=== PATIENT | female | born 1990 | race Caucasian/White ===

== ENCOUNTER 2021-01-12 01:40 | Emergency (ER) | payer MEDICAID ==
--- NOTE | 2021-01-12 01:40 | NUR ---
PT CHARU BLS. TAKEN TO BED 7
--- NOTE | 2021-01-12 01:45 | NUR ---
PT STATED "MY RIDE IS HERE." PATIENT LEFT WITHOUT BEING SEEN BY DR. MANCILLA. NO FURTHER CARE PROVIDED FOR PATIENT.
== END 2021-01-12 01:45 | disposition left against medical advice (07) ==
LOC: MED 01:40
DX: F41.9 Anxiety disorder, unspecified (principal); Z53.21 Procedure and treatment not carried out due to patient leaving prior to being seen by health care provider

== ENCOUNTER 2021-02-21 11:40 | Emergency (ER) | payer MEDICAID, OTHER ==
[~2021-02-21] VITALS: Ht 152.4 cm; Wt 60.8 kg
[2021-02-21 11:51] VITALS: BP 113/71
--- NOTE | 2021-02-21 11:55 | NUR ---
To ED bed 08
--- NOTE | 2021-02-21 12:00 | NUR ---
Dr. Sherman at bedside for MSE
[2021-02-21] MEDS ORDERED: VANCOMYCIN 1,000 MG in DEXTROSE 5% 250 ML IV ONE (12:20)
[2021-02-21] MEDS ORDERED: MORPHINE SULFATE 4 MG/ML SYR IVP ONE (12:20)
[2021-02-21] MEDS ORDERED: NACL 0.9% 1,000 ML IV ONE (12:20)
[2021-02-21] MEDS ORDERED: ONDANSETRON 4 MG/2 ML VIAL IVP ONE (12:20)
[2021-02-21] MEDS ORDERED: PIPERACILLIN/TAZOBACTAM 4.5 GM in DEXTROSE 5% 100 ML IV ONE (12:20)
[2021-02-21] MEDS ORDERED: PIPERACILLIN/TAZOBACTAM 4.5 GM VIAL IV ONE (12:28)
[2021-02-21] MEDS ORDERED: VANCOMYCIN 1,000 MG VIAL ONE (12:29)
[2021-02-21 12:47] LABS: BASOPHILS % (AUTO) 0.4 % (0.0-2.0); EOSINOPHILS # (AUTO) 0.3 K/uL (0-0.4); EOSINOPHILS % (AUTO) 2.9 % (0.0-4.0); HEMATOCRIT 27.7 % (36-48); HEMOGLOBIN 9.3 g/dL (12.0-16.0); LYMPHOCYTES # (AUTO) 2.7 K/uL (2.5-16.5); LYMPHOCYTES % (AUTO) 23.4 % (20.5-51.1); MEAN CORPUSCULAR HEMOGLOBIN 32 pg (27-31); MEAN CORPUSCULAR HGB CONC 34 g/dL (33-37); MONOCYTES # (AUTO) 0.9 K/uL (0.8-1.0); MONOCYTES % (AUTO) 7.6 % (1.7-9.3); NEUTROPHILS # (AUTO) 7.5 K/uL (1.8-7.7); NEUTROPHILS % (AUTO) 65.7 % (42.2-75.2); PLATELET COUNT (AUTO) 307 K/uL (140-450); RED BLOOD CELL COUNT(AUTO) 2.89 MIL/uL (4.20-5.40); RED CELL DISTRIBUTION WIDTH 13.8 % (11.6-13.7); WHITE BLOOD COUNT (AUTO) 11.5 K/uL (4.8-10.8)
[2021-02-21 12:55] LABS: APPEARANCE,URINE CLOUDY (CLEAR); BILIRUBIN,URINE 1+ (NEGATIVE); BLOOD, URINE 3+ (NEGATIVE); COLOR,URINE AMBER (YELLOW); LEUKOCYTE ESTERASE ,URINE 1+ (NEGATIVE); NITRITE, URINE NEGATIVE (NEGATIVE); UGLUCOSE NEGATIVE (NEGATIVE)
[2021-02-21 13:05] LABS: ALBUMIN 3.3 g/dL (3.4-5.0); ANION GAP 11.3 (8-16); CARBON DIOXIDE 27.1 mmol/L (21-32); CREATININE 0.7 mg/dL (0.6-1.3); POTASSIUM 3.4 mmol/L (3.5-5.1); TOTAL BILIRUBIN 0.9 mg/dL (0.0-1.0)
--- NOTE | 2021-02-21 13:06 | NUR ---
30 YEAR OLD FEMALE COMPLAINS OF SURGICAL SITE BLEEDING AND GREEN DISCHARGE X TODAY FROM A BUTT LIFT SURGERY IN [facility], [place] ON WEDNESDAY. PT DENIES ANY PAIN. PT AOX4, BREATHING EVEN AND UNLABORED, SKIN WARM AND DRY. BED IN LOWEST POSITION, SEMI-FOWLERS, LOCKED, BED RAIL UPX1 PMH - DENIES ALLERGIES - NKA
[2021-02-21 13:08] LABS: PROTHROMBIN TIME 9.2 secs (10.8-13.4)
[2021-02-21 13:30] LABS: WBC,URINE 16-25 (MOD) /HPF (0-5)
--- NOTE | 2021-02-21 13:56 | NUR ---
CT WITH CONTRAST SIGNED BY PT
--- NOTE | 2021-02-21 14:15 | NUR ---
Patient taken to CT scan via gurney by Glipho.
[2021-02-21] MEDS ORDERED: CLIN150C1 PO (14:56)
[2021-02-21] MEDS ORDERED: ACET-8386 PO (14:56)
[2021-02-21] MEDS ORDERED: ONDA4TAB PO (14:56)
--- NOTE | 2021-02-21 16:00 | NUR ---
Patient discharged with v/s stable. Written and verbal after care instructions about cellulitis given and explained. Patient alert, oriented and verbalized understanding of instructions. Ambulatory with steady gait. All questions addressed prior to discharge. ID band removed. Patient advised to follow up with PMD. Rx of hydrocodone, cleocin, zofran given. Patient educated on indication of medication including possible reaction and side effects. Opportunity to ask questions provided and answered.
[2021-02-21 16:06] VITALS: BP 108/70
== END 2021-02-21 16:00 | disposition home or self-care (01) ==
LOC: MED 11:40
DX: T81.49XA Infection following a procedure, other surgical site, initial encounter (principal); E86.0 Dehydration
CPT/HCPCS: 36415; 74177; 80053; 81001; 83605; 83690; 84702; 84703; 85025; 85610; 85730; 87040; 87086; 96365; 96366; 96367; 96375; 99285; J2405; J2543; J3370; J7060; Q9967; J2270; J7030

== ENCOUNTER 2022-03-09 11:45 | Emergency (ER) | payer MEDICAID, OTHER ==
[~2022-03-09] VITALS: Ht 152.4 cm; Wt 60.6 kg
[~2022-03-09 11:45] MED LIST: ACET-8386 PO; CLIN150C1 PO; ONDA4TAB PO
[2022-03-09 11:48] VITALS: BP 143/104
--- NOTE | 2022-03-09 11:58 | NUR ---
PT AMBULATED TO ER BED 2 WITH ASSISTANCE
--- NOTE | 2022-03-09 12:15 | NUR ---
31Y FEMALE BIB SELF DUE TO ALCOHOL WITHDRAWL. PER PATIENT HER LAST DRINK WAS THIS AM, AND SHE HAS BEEN DRINKING HEAVILY FOR YEARS. PT CURRENTLY EXPERIENCING TREMORS, BILATERAL HAND CRAMPING/ NUMBNESS/TINGLING. PT REPORTS DRINKING 4 SHOTS OF DUNG FOR THE PAST 4 YEARS; LAST DRINK 1 SHOT OF DUNG THIS MORNING. PATIENT NOTED WITH BILATERAL HAND CONTRACTIONS. PT DENIES CHEST PAIN, ABDOMINAL PAIN, BLURRY VISION, HEADACHE, DIZZINESS, FALLS, N/V/D. PT PLACED ONTO GLOBAL COMPENSATION DIRECTOR SHOWING HR 136; RR 33, SPO2 100% ON ROOM AIR. COACHED TO BREATHING EXERCISES. BED LOCKED IN LOWEST POSITION, SIDE RAILS X 2. SEIZURE PRECAUTIONS IN PLACE. PMH: HLD MEDS: NALTREXINE AND ATORVASTATIN NKA
[2022-03-09] MEDS ORDERED: LORazepam 2 MG/ML VIAL IVP ONE (12:45)
[2022-03-09] MEDS ORDERED: FOLIC ACID 5 MG/ML SYR IM ONE (12:45)
[2022-03-09] MEDS ORDERED: NACL 0.9% 1,000 ML IV SCH (12:45)
[2022-03-09] MEDS ORDERED: ONDANSETRON 4 MG/2 ML VIAL IVP ONE (12:45)
[2022-03-09] MEDS ORDERED: THIAMINE 200 MG/2 ML VIAL IM ONE (12:45)
[2022-03-09 13:01] LABS: BASOPHILS % (AUTO) 0.5 % (0.0-2.0); EOSINOPHILS % (AUTO) 0.2 % (0.0-4.0); HEMATOCRIT 44.6 % (36-48); HEMOGLOBIN 15.2 g/dL (12.0-16.0); LYMPHOCYTES # (AUTO) 3.7 K/uL (2.5-16.5); LYMPHOCYTES % (AUTO) 50.1 % (20.5-51.1); MEAN CORPUSCULAR HEMOGLOBIN 32 pg (27-31); MEAN CORPUSCULAR HGB CONC 34 g/dL (33-37); MEAN CORPUSCULAR VOLUME 94.3 fL (80-94); MONOCYTES # (AUTO) 0.5 K/uL (0.8-1.0); MONOCYTES % (AUTO) 7.1 % (1.7-9.3); NEUTROPHILS # (AUTO) 3.1 K/uL (1.8-7.7); NEUTROPHILS % (AUTO) 42.1 % (42.2-75.2); PLATELET COUNT (AUTO) 307 K/uL (140-450); RED BLOOD CELL COUNT(AUTO) 4.73 MIL/uL (4.20-5.40); RED CELL DISTRIBUTION WIDTH 13.7 % (11.6-13.7); WHITE BLOOD COUNT (AUTO) 7.4 K/uL (4.8-10.8)
--- NOTE | 2022-03-09 13:52 | NUR ---
PATIENT STATES SHE FEELS A BIT BETTER NOW. BED LOCKED IN LOWEST POSITION, SIDE RAILS X 1.
[2022-03-09 13:54] VITALS: BP 129/87
[2022-03-09 14:12] LABS: ANION GAP 20.4 (8-16); CARBON DIOXIDE 22.6 mmol/L (21-32)
[2022-03-09 14:15] LABS: TOTAL BILIRUBIN 0.4 mg/dL (0.0-1.0)
[2022-03-09 14:16] LABS: ALBUMIN 4.3 g/dL (3.4-5.0); MAGNESIUM 2.3 mg/dL (1.8-2.4)
[2022-03-09] MEDS ORDERED: LIB25 PO (14:28)
[2022-03-09] MEDS ORDERED: ONDA-188 SL (14:28)
--- NOTE | 2022-03-09 14:35 | NUR ---
IV removed, catheter intact and site benign. Applied folded 4x4 gauze and tape to stop bleeding.
--- NOTE | 2022-03-09 14:36 | NUR ---
Patient discharged with v/s stable. Written and verbal after care instructions given and explained. Patient alert, oriented and verbalized understanding of instructions. Ambulatory with steady gait. All questions addressed prior to discharge. ID band removed. Patient advised to follow up with PMD. Rx of LibriumTatiana ODT given. Patient educated on indication of medication including possible reaction and side effects. Opportunity to ask questions provided and answered.
[2022-03-09 15:43] LABS: CREATININE 0.7 mg/dL (0.6-1.3)
== END 2022-03-09 14:36 | disposition home or self-care (01) ==
LOC: MED 11:45
DX: F10.239 Alcohol dependence with withdrawal, unspecified (principal); E86.0 Dehydration; Z79.899 Other long term (current) drug therapy
CPT/HCPCS: 36415; 80053; 81002; 81025; 82150; 83690; 83735; 85025; 96361; 96372; 96374; 96375; 99284; J2060; J2405; J3411; J3490; J7030

== ENCOUNTER 2022-11-08 06:28 | Emergency (ER) | payer SELFPAY ==
[~2022-11-08] VITALS: Ht 152.4 cm; Wt 61.7 kg
[~2022-11-08 06:28] MED LIST changes: -ACET-8386 PO; +ACET-8905 PO; +LIB25 PO; +ONDA-188 SL
[2022-11-08 06:34] VITALS: BP 134/86
--- NOTE | 2022-11-08 07:38 | NUR ---
PT AMBULATED TO ER BED 7
[2022-11-08] MEDS ORDERED: KETOROLAC 60 MG/2 ML VIAL IM ONE (07:40)
--- NOTE | 2022-11-08 07:57 | NUR ---
Patient being evaluated by physician at bedside.
[2022-11-08] MEDS ORDERED: diphenhydrAMINE 50 MG/ML VIAL IVP ONE (08:00)
[2022-11-08] MEDS ORDERED: KETOROLAC 30 MG/ML VIAL IVP ONE (08:00)
[2022-11-08] MEDS ORDERED: NACL 0.9% 1,000 ML IV ONE (08:00)
[2022-11-08] MEDS ORDERED: ONDANSETRON 4 MG/2 ML VIAL IVP ONE (08:00)
--- NOTE | 2022-11-08 08:00 | NUR ---
32 y/o female bib self with c/o cough and cold symptoms x 5 days. Per patient denies any sick contacts. Denies any fever, chills or SOB. Patient has chest pain when coughing. Patient had laser eye surgery 2 days ago. Medical History: Denies NKDA
--- NOTE | 2022-11-08 08:19 | NUR ---
X-Ray at bedside.
[2022-11-08 08:32] LABS: BASOPHILS # (AUTO) 0.1 K/uL (0.00-0.22); BASOPHILS % (AUTO) 0.5 % (0.0-2.0); EOSINOPHILS # (AUTO) 0.2 K/uL (0-0.4); EOSINOPHILS % (AUTO) 2.2 % (0.0-4.0); HEMOGLOBIN 13.7 g/dL (12.0-16.0); LYMPHOCYTES # (AUTO) 2.3 K/uL (2.5-16.5); LYMPHOCYTES % (AUTO) 24.7 % (20.5-51.1); MEAN CORPUSCULAR HEMOGLOBIN 32 pg (27-31); MEAN CORPUSCULAR HGB CONC 34 g/dL (33-37); MONOCYTES # (AUTO) 0.5 K/uL (0.8-1.0); MONOCYTES % (AUTO) 5.8 % (1.7-9.3); NEUTROPHILS # (AUTO) 6.2 K/uL (1.8-7.7); NEUTROPHILS % (AUTO) 66.8 % (42.2-75.2); PLATELET COUNT (AUTO) 190 K/uL (140-450); RED BLOOD CELL COUNT(AUTO) 4.29 MIL/uL (4.20-5.40); RED CELL DISTRIBUTION WIDTH 14.1 % (11.6-13.7); WHITE BLOOD COUNT (AUTO) 9.3 K/uL (4.8-10.8)
[2022-11-08 08:49] LABS: ALBUMIN 3.6 g/dL (3.4-5.0); ASPARTATE AMINOTRANSFERASE 89 U/L (15-37); CARBON DIOXIDE 27.8 mmol/L (21-32); CHLORIDE 104 mmol/L (98-107); CREATININE 0.5 mg/dL (0.6-1.3); GFR ARICAN-AMERICAN 185 mL/min (>90); GLUCOSE 98 mg/dL (74-106); POTASSIUM 3.8 mmol/L (3.5-5.1); SODIUM SERUM 138 mmol/L (136-145); TOTAL BILIRUBIN 0.3 mg/dL (0.0-1.0); UREA NITROGEN, BLOOD 4 mg/dL (7-18)
[2022-11-08] MEDS ORDERED: INHA1SPA24 MC (09:15)
[2022-11-08] MEDS ORDERED: IBUP-2213 PO (09:15)
[2022-11-08] MEDS ORDERED: ALBU0.0912 IH (09:15)
[2022-11-08] MEDS ORDERED: MUC600 PO (09:15)
--- NOTE | 2022-11-08 09:20 | NUR ---
Dr. Chaudhry evaluating patient at bedside.
[2022-11-08 09:38] VITALS: BP 144/87
--- NOTE | 2022-11-08 09:38 | NUR ---
Patient discharged with v/s stable. Written and verbal after care instructions given. Patient alert, oriented and verbalized understanding of instructions. Ambulatory with steady gait. All questions addressed prior to discharge. ID band removed. Patient advised to follow up with PMD. Rx of Albuerol, Ibuprofen, Inhaler and Mucinex given. Opportunity to ask questions provided and answered.
== END 2022-11-08 09:38 | disposition home or self-care (01) ==
LOC: MED 06:28
DX: J20.8 Acute bronchitis due to other specified organisms (principal); Z20.822 Contact with and (suspected) exposure to COVID-19; R79.89 Other specified abnormal findings of blood chemistry
CPT/HCPCS: 36415; 71045; 80053; 81025; 84484; 85025; 87426; 87804; 96361; 96374; 96375; 99284; J1200; J1885; J2405; Q0092